=== PATIENT | female | born 1955 | race Caucasian/White ===

== ENCOUNTER → 2023-05-23 07:29 | Outpatient (BNVA) | payer OTHER, SELFPAY | PROVIDERS: PCP Family Medicine; Referring Provider Nurse Practitioner Family; Visit Provider Psychiatry & Neurology Neurology | DX: F03.90 Unspecified dementia, unspecified severity, without behavioral disturbance, psychotic disturbance, mood disturbance, and anxiety (principal); Z96.89 Presence of other specified functional implants; E03.9 Hypothyroidism, unspecified; I10 Essential (primary) hypertension; E78.5 Hyperlipidemia, unspecified | CPT/HCPCS: 36415; 82306; 82607; 82746; 83735; 83921; 84425; 85651; 86140; 86160; 86162; 86235; 86255; 86376; 86431; 86592; 86780; 99204 ==

== ENCOUNTER 2023-06-08 07:42 | Outpatient (CLI) | payer OTHER, SELFPAY ==
--- NOTE | 2023-06-08 08:00 | USCV_ITS ---
Raiza Pelayo Age: 68 Gender: F : 1955 Exam Date: 06/08/2023 08:08 Ordering Phys: Usama Pineda MD Technologist: Jakob Grove [place] [facility] [place]: carotid bruit Risk Factors: Previous Vascular Surgery: Right Brachial BP: / Left Brachial BP: / Right Left Velocity (cm/s) Spectral Plaque Velocity (cm/s) Spectral Plaque Syst/Diast Broadening Syst/Diast Broadening 130.10/22.30 Prox CCA 91.40 / 19.70 98.70/ 20.20 Mid CCA 102.50/ 21.00 76.10/ 14.00 Distal CCA 113.10/ 28.90 45.30/ 15.10 Prox ICA 69.10 / 20.20 51.30/ 20.60 Mid ICA 55.50 / 18.10 105.80/36.40 Distal ICA 57.70 / 23.10 80.50 ECA 106.50 0.52 ICA/CCA 0.54 Antegrade Vertebral Antegrade 49.30/ 9.90 cm/s 70.70/ 26.40 cm/s Tri Subclavian Tri 82.90 135.4 0 CONCLUSIONS Intimal thickening in the common carotid arteries and internal carotid arteries bilaterally. Right ICA stenosis <50%. Mild atheromatous plaque right carotid bulb/ICA. Left ICA stenosis <50%. Mild atheromatous plaque left carotid bulb/ICA. Normal antegrade Doppler flow noted in the right vertebral artery. Normal antegrade Doppler flow noted in the left vertebral artery. Milan Agiular MD (Electronically Signed) Final Date: 08 June 2023 13:55 S
== END 2023-06-08 07:43 | disposition home or self-care (01) ==
PROVIDERS: PCP Family Medicine; Visit Provider Psychiatry & Neurology Neurology
DX: F03.90 Unspecified dementia, unspecified severity, without behavioral disturbance, psychotic disturbance, mood disturbance, and anxiety (principal); I65.23 Occlusion and stenosis of bilateral carotid arteries
CPT/HCPCS: 93880

== ENCOUNTER → 2023-06-14 12:21 | Outpatient (BNVA) | payer OTHER, SELFPAY | PROVIDERS: PCP Family Medicine; Referring Provider Psychiatry & Neurology Neurology; Visit Provider Psychiatry & Neurology Neurology | DX: F03.90 Unspecified dementia, unspecified severity, without behavioral disturbance, psychotic disturbance, mood disturbance, and anxiety (principal) | CPT/HCPCS: 95813; 95816 ==